=== PATIENT | female | born 1990 | race American Indian/Alaskan Native ===

== ENCOUNTER 2019-03-07 20:33 | Emergency (ER) | payer OTHER ==
[2019-03-07 20:47] VITALS: BP 130/83
--- NOTE | 2019-03-07 20:47 | Emergency Department Report ---
Blank Doc - Documentation Documentation: 28 y/o female that c/o sharp pain to the right side of frontal head. Also dizz iness.
[2019-03-07 20:59] LABS: Basophils # (Auto) 0.2 K/mm3 (0.0-0.1); Eosinophils # (Auto) 0.5 K/mm3 (0.0-0.4); Eosinophils % (Auto) 7.7 % (0.0-4.3); Hematocrit 37.5 % (30.3-42.9); Hemoglobin 12.9 gm/dl (10.1-14.3); Lymphocytes # (Auto) 2.9 K/mm3 (1.2-5.4); Lymphocytes % (Auto) 40.9 % (13.4-35.0); Mean Corpuscular HGB Conc 34 % (30-34); Mean Corpuscular Volume 89 fl (79-97); Monocytes # (Auto) 0.6 K/mm3 (0.0-0.8); Monocytes % (Auto) 8.4 % (0.0-7.3); Platelet Count 384 K/mm3 (140-440); Red Blood Count 4.21 M/mm3 (3.65-5.03); Red Cell Distribution Width 13.5 % (13.2-15.2)
[2019-03-07 21:14] LABS: Alanine Aminotransferase 22 units/L (7-56); Albumin 4.3 g/dL (3.9-5); BUN/Creatinine Ratio 24; Blood Urea Nitrogen 17 mg/dL (7-17); Calcium 9.3 mg/dL (8.4-10.2); Hemolysis Index 10
[2019-03-07] MEDS ORDERED: TYLENOL PO ONE (23:00)
[2019-03-07] MEDS ORDERED: REGLAN IV ONE (23:00)
[2019-03-07] MEDS ORDERED: BENADRYL IV ONE (23:00)
[2019-03-07] MEDS ORDERED: DECADRON IV ONE (23:00)
[2019-03-08 00:30] LABS: Bacteria,Urine 1+ /HPF (Negative); Bilirubin,Urine NEG (Negative); Blood,Urine SM (Negative); Color,Urine Yellow (Yellow); Mucus,Urine FEW /HPF; Protein,Urine <15 mg/dL mg/dL (Negative); Urobilinogen,Urine < 2.0 mg/dL (<2.0)
[2019-03-08 00:33] LABS: HCG Qualitative,Urine Negative (Negative)
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
--- NOTE | 2019-03-08 01:19 | Cat Scan Report ---
PROCEDURE: CT HEAD/BRAIN WO CON TECHNIQUE: Computerized tomography of the head was performed without contrast material. CT DOSE LENGTH PRODUCT: 920.5 mGycm HISTORY: sharp stabbing pain to rightside of head COMPARISONS: None . FINDINGS: Skull and scalp: Normal . Paranasal sinuses: Mild opacification of the bilateral ethmoid and right sphenoid sinuses. . Ventricles and subarachnoid spaces: Normal . Cerebrum: No evidence of hemorrhage, acute infarction or mass . Cerebellum and brainstem: No evidence of hemorrhage, acute infarction or mass . Vasculature: Normal . Other: None . ASPECTS: 10 IMPRESSION: There is no evidence of an acute cranial process. Mild sinusitis. . This document is electronically signed by Carmenza Anrett DO., March 08 2019 01:17:31 AM ET
== END 2019-03-08 02:00 | disposition home or self-care (01) ==
LOC: ED 20:33
DX: J01.90 Acute sinusitis, unspecified (principal)
CPT/HCPCS: 36415; 70450; 80053; 81001; 81025; 85025; 96374; 96375; 99284; J1100; J1200; J2765